=== PATIENT | female | born 1975 | race Caucasian/White ===

== ENCOUNTER 2017-04-25 02:36 | Inpatient (IN) | payer MEDICAID ==
[~2017-04-25] VITALS: Ht 147.3 cm; Wt 61.9 kg
[~2017-04-25 02:36] MED LIST: LAC PO; LEVAQUIN750 MG PO; MOTRIN; MOTRIN800 MG PO
[2017-04-25 02:45] VITALS: Ht 147.3 cm; Wt 61.9 kg
[2017-04-25 03:45] LABS: CALCIUM 9.1 mg/dL (8.5-10.1); CARBON DIOXIDE 28.4 mmol/L (21-32); CHLORIDE SERUM 99 mmol/L (98-107); CREATININE SERUM 0.9 mg/dL (0.6-1.0); GFR1 > 60 mL/min; GLUCOSE SERUM 94 mg/dL (74-106); POTASSIUM SERUM 3.8 mmol/L (3.5-5.1); SODIUM SERUM 137 mmol/L (136-145)
[2017-04-25 03:51] LABS: ALBUMIN 3.6 g/dL (3.4-5.0); ALKALINE PHOSPHATASE 106 U/L (46-116); ALT/SGPT 23 U/L (14-59); AST/SGOT 16 U/L (15-37); BILIRUBIN TOTAL 0.3 mg/dL (0.20-1.00); LIPASE 344 IU/L (73-393); TOTAL PROTEIN, SERUM 8.2 g/dL (6.4-8.2)
[2017-04-25 03:53] LABS: PLATELET COUNT 330 x10^3mcL (130-400); RED CELL DISTRIBUTION WIDTH 12.4 % (11.5-14.5)
[2017-04-25 04:43] LABS: BAND NEUTROPHIL 2 % (0-10); BASOPHIL 0 % (0-2); MONOCYTE 7 % (0-7); SEGMENTED NEUTROPHILS 74 % (37-75)
[2017-04-25 04:44] LABS: rbc morphology (normal/abnorm) NORMAL (NORMAL)
[2017-04-25 04:45] LABS: PLATELET MORPHOLOGY PLATELETS NORMAL
[2017-04-25 11:00] LABS: MAGNESIUM 2.3 mg/dL (1.8-2.4); PHOSPHOROUS 3.1 mg/dL (2.5-4.9)
[2017-04-25 11:12] LABS: CHOLESTEROL/HDL RATIO 2.2
[2017-04-25 11:13] LABS: T3 TOTAL 1.37 ng/mL
[2017-04-25 11:24] LABS: FREE T4 1.21 ng/dL (0.76-1.46); T4(THYROXINE) 8.3 ug/dL (4.7-13.3)
[2017-04-25 14:02] VITALS: BP 150/86
[2017-04-25 15:37] VITALS: BP 111/72
[2017-04-25 17:11] VITALS: BP 117/73
[2017-04-25 19:46] LABS: microscopic required? NO
[2017-04-25 20:02] LABS: urine erythrocyte NEGATIVE (NEGATIVE)
[2017-04-25 20:17] LABS: AMPHETAMINE QUAL UR POSITIVE (NEG <=1000)
[2017-04-25 21:34] VITALS: BP 125/73
[2017-04-26 04:55] VITALS: BP 123/77
[2017-04-26 06:14] LABS: BASOPHIL % 0.6 % (0-2); PLATELET COUNT 263 x10^3mcL (130-400); RED CELL DISTRIBUTION WIDTH 13.4 % (11.5-14.5)
[2017-04-26 06:24] LABS: CALCIUM 8.3 mg/dL (8.5-10.1); CARBON DIOXIDE 26.7 mmol/L (21-32); CHLORIDE SERUM 104 mmol/L (98-107); CREATININE SERUM 0.7 mg/dL (0.6-1.0); GFR1 > 60 mL/min; GLUCOSE SERUM 82 mg/dL (74-106); MAGNESIUM 2.1 mg/dL (1.8-2.4); PHOSPHOROUS 4.1 mg/dL (2.5-4.9); POTASSIUM SERUM 3.4 mmol/L (3.5-5.1); SODIUM SERUM 139 mmol/L (136-145)
[2017-04-26 09:13] VITALS: BP 123/68
[2017-04-26 12:36] VITALS: BP 120/73
[2017-04-26 16:40] VITALS: BP 111/58
[2017-04-26 20:14] VITALS: BP 119/66
[2017-04-26 21:12] VITALS: BP 111/56
[2017-04-27 06:24] VITALS: BP 100/65
[2017-04-27 06:33] LABS: BASOPHIL % 1.2 % (0-2); PLATELET COUNT 276 x10^3mcL (130-400); RED CELL DISTRIBUTION WIDTH 13.4 % (11.5-14.5)
[2017-04-27 06:43] LABS: CALCIUM 8.5 mg/dL (8.5-10.1); CARBON DIOXIDE 27.4 mmol/L (21-32); CHLORIDE SERUM 104 mmol/L (98-107); CREATININE SERUM 0.7 mg/dL (0.6-1.0); GFR1 > 60 mL/min; GLUCOSE SERUM 82 mg/dL (74-106); MAGNESIUM 2.3 mg/dL (1.8-2.4); PHOSPHOROUS 4.1 mg/dL (2.5-4.9); POTASSIUM SERUM 3.5 mmol/L (3.5-5.1); SODIUM SERUM 142 mmol/L (136-145)
[2017-04-27 09:19] VITALS: BP 100/65
[2017-04-27 09:48] VITALS: BP 112/71
[2017-04-27] MEDS ORDERED: COL100 PO (10:02)
== END 2017-04-27 11:49 | disposition home or self-care (01) | DRG 247 ==
LOC: ED 02:36 → DU 09:52 → MU 09:52 → DU 10:37 → MU 04-26 12:31
PROVIDERS: Emergency Medicine; Family Medicine; Family Medicine Sports Medicine
DX: K56.7 Ileus, unspecified (principal); E83.51 Hypocalcemia; N85.8 Other specified noninflammatory disorders of uterus; E87.6 Hypokalemia; E86.0 Dehydration; F15.10 Other stimulant abuse, uncomplicated; F17.210 Nicotine dependence, cigarettes, uncomplicated; Z90.49 Acquired absence of other specified parts of digestive tract; Z82.49 Family history of ischemic heart disease and other diseases of the circulatory system; Z68.26 Body mass index [BMI] 26.0-26.9, adult
CPT/HCPCS: 83880; 84439; J2060; J2270; J2405; J2543; J3490; J7030; Q0092; Q9966; Q9967

== ENCOUNTER 2018-08-16 14:31 | Emergency (ER) | payer MEDICAID ==
[~2018-08-16] VITALS: Ht 157.5 cm; Wt 62.6 kg
[~2018-08-16 14:31] MED LIST changes: +COL100 PO
[2018-08-16 15:02] VITALS: BP 109/87; Ht 157.5 cm; Wt 62.6 kg
== END 2018-08-16 15:30 | disposition left against medical advice (07) ==
LOC: ED 14:31
DX: Z53.21 Procedure and treatment not carried out due to patient leaving prior to being seen by health care provider (principal)